=== PATIENT | male | born 1970 | race Caucasian/White ===

== ENCOUNTER → 2021-05-04 | Outpatient (CLI) | payer OTHER ==
[~2021-05-04] MED LIST: AMLO-257 PO; ATOR10 PO; VALS1TAB81 PO
== END | disposition home or self-care (01) ==
LOC: OIH 10:28
PROVIDERS: ATTEND Nurse Practitioner Adult Health
DX: Z13.6 Encounter for screening for cardiovascular disorders (principal); I25.10 Atherosclerotic heart disease of native coronary artery without angina pectoris; I51.5 Myocardial degeneration
CPT/HCPCS: 75571